=== PATIENT | male | born 1970 | race Caucasian/White ===

== ENCOUNTER 2017-03-21 14:30 | Emergency (ER) | payer BC ==
--- NOTE | 2017-03-21 14:39 | EDM.PDOC ---
ED HPI Trauma - General Chief Complaint: Lower Extremity Injury/Pain Stated Complaint: HEEL Time Seen by Provider: 03/21/17 14:39 Source: Reports: Patient - History of Present Illness INITIAL COMMENTS - FREE TEXT/NARRATIVE: HISTORY AND PHYSICAL: History of present illness: [] Patient presents with foot and ankle pain, he was working on a friend's car and stood up twisting his ankle, he is able to bear weight but with pain he rates pain 7 of 10 with weightbearing, he states that he did hear an audible pop when he twisted his ankle No fever nausea vomiting diarrhea constipation chest pain shortness breath headache dizziness or palpitation no bowel or urine symptoms Review of systems: As per history of present illness and below otherwise all systems reviewed and negative. Past medical history: As per history of present illness and as reviewed below otherwise noncontributory. Surgical history: As per history of present illness and as reviewed below otherwise noncontributory. Social history: No reported history of drug or alcohol abuse. Family history: As per history of present illness and as reviewed below otherwise noncontributory. Physical exam: HEENT: Atraumatic, normocephalic, pupils reactive, negative for conjunctival pallor or scleral icterus, mucous membranes moist, throat clear, neck supple, nontender, trachea midline. Lungs: Clear to auscultation, breath sounds equal bilaterally, chest nontender. Heart: S1S2, regular, negative for clicks, rubs, or JVD. Abdomen: Soft, nondistended, nontender. Negative for masses or hepatosplenomegaly. Negative for costovertebral tenderness. Pelvis: Stable nontender. Genitourinary: Deferred. Rectal: Deferred. Extremities: Atraumatic, negative for cords or calf pain. Neurovascular unremarkable. Neuro: Awake, alert, oriented. Cranial nerves II through XII unremarkable. Cerebellum unremarkable. Motor and sensory unremarkable throughout. Exam nonfocal. Right lower extremity unaffected above the ankle he does have pain over lateral malleolus, he is also tender over the dorsum of his foot, there is no bruising or significant swelling entire limb is neurovascularly intact Diagnostics: [] Right ankle 3 views Right foot 3 views Therapeutics: [] Tylenol #3 Rest Is Air splint Crutches Impression: [] Right ankle sprain Definitive disposition and diagnosis as appropriate pending reevaluation and review of above. Allergies/ADRs: Allergies No Known Allergies Allergy (Verified 03/21/17 14:42) Home Medications: Ambulatory Orders Hydrochlorothiazide 25 mg PO DAILY 01/12/15 [Confirmed 03/21/17] amLODIPine Besylate [Amlodipine Besylate] 10 mg PO DAILY 01/12/15 [Confirmed ] Testosterone [Androderm] 4 mg TOP DAILY 02/02/16 [Confirmed 03/21/17] Celecoxib [CeleBREX] 200 mg PO DAILY #45 cap 03/21/16 [Confirmed 03/21/17] Past Medical History HEENT History: Reports: Impaired vision Other HEENT History: wears glasses Cardiovascular History: Reports: Hypertension Respiratory History: Reports: Sleep apnea Other Respiratory History: uses CPAP Gastrointestinal History: Reports: GERD Genitourinary History: Reports: None Musculoskeletal History: Reports: Arthritis Other Musculoskeletal History: has 2 herniated discs in back, possibly L 4 and 5 Neurological History: Reports: None Other Neuro History: has 2 herniated discs in back Psychiatric History: Reports: None Endocrine/Metabolic History: Reports: Obesity/BMI 30+ Hematologic History: Reports: None Immunologic History: Reports: None Oncologic (Cancer) History: Reports: None Dermatologic History: Reports: None - Infectious Disease History Infectious Disease History: Reports: None - Past Surgical History Musculoskeletal Surgical History: Reports: Arthroscopic knee, ORIF, Shoulder surgery Social & Family History - Family History HEENT: Reports: None Cardiac: Reports: None Respiratory: Reports: Asthma GI: Reports: None Neurological: Reports: None - Tobacco Use Smoking Status *Q: Former Smoker Years of Tobacco use: 10 Used Tobacco, but Quit: Yes Second Hand Smoke Exposure: Yes - Alcohol Use Days Per Week of Alcohol Use: 1 Number of Drinks Per Day: 2 Total Drinks Per Week: 2 - Recreational Drug Use Recreational Drug Use: No Drug Use in Last 12 Months: No Review of Systems - Review of Systems Review Of Systems: ROS reveals no pertinent complaints other than HPI. Trauma Exam - Physical Exam Exam: See Below Course - Vital Signs Last Recorded V/S: Last Vital Signs Temp 36.6 C 03/21/17 14:46 Pulse 88 03/21/17 14:46 Resp 20 03/21/17 14:46 BP 144/79 H 03/21/17 14:46 Pulse Ox 95 03/21/17 14:46 - Orders/Labs/Meds Orders: Active Orders 24 hr Category Date Time Status Ankle Min 3V Rt [CR] Stat Exams 03/21/17 14:38 Taken Foot Comp Min 3V Rt [CR] Stat Exams 03/21/17 14:38 Taken Departure - Departure Time of Disposition: 15:24 Disposition: Home, Self-Care 01 Condition: good Clinical Impression: Ankle sprain Forms: ED Department Discharge Additional Instructions: Medication as prescribed Ice 20 minute intervals 3 times daily 7-10 days Elevate foot rest Recommend nonweightbearing Crutches Air splint for comfort and additional support Followup with orthopedist, call office for appropriate followup [facility] [address], [address] [place] [address] my orthopedic The following information is given to patients seen in the emergency department who are being discharged to home. This information is to outline your options for follow-up care. We provide all patients seen in our emergency department with a follow-up referral. The need for follow-up, as well as the timing and circumstances, are variable depending upon the specifics of your emergency department visit. If you don't have a primary care physician on staff, we will provide you with a referral. We always advise you to contact your personal physician following an emergency department visit to inform them of the circumstance of the visit and for follow-up with them and/or the need for any referrals to a consulting specialist. The emergency department will also refer you to a specialist when appropriate. This referral assures that you have the opportunity for follow-up care with a specialist. All of these measure are taken in an effort to provide you with optimal care, which includes your follow-up. Under all circumstances we always encourage you to contact your private physician who remains a resource for coordinating your care. When calling for follow-up care, please make the office aware that this follow-up is from your recent emergency room visit. If for any reason you are refused follow-up, please contact the [facility] emergency department at and asked to speak to the emergency department charge nurse. - My Orders Last 24 Hours: My Active Orders 03/21/17 14:38 Ankle Min 3V Rt [CR] Stat Foot Comp Min 3V Rt [CR] Stat - Assessment/Plan Last 24 Hours: My Active Orders 03/21/17 14:38 Ankle Min 3V Rt [CR] Stat Foot Comp Min 3V Rt [CR] Stat
[2017-03-21 16:03] VITALS: BP 129/69
--- NOTE | 2017-03-21 16:46 | CR ---
EXAM DATE: 03/21/17 PATIENT'S AGE: 47 Patient: ORION CONTRERAS Facility: [place], [place] Site . Site : 1970 Study: XRay Extremity Right Foot [id number]/27/[id number] 2:58:30 PM Ordering Physician: Radha Kiran Final Report: Indication: Ankle trauma with pain Technique: Three views right foot Comparison: None Findings: Bones: Alignment is normal. No fractures or bone lesions. There is a small posterior calcaneal enthesophyte. Joint spaces: Unremarkable. Soft tissues: Unremarkable. Impression: No acute abnormality. Dictated by Maxine Major MD @ Mar 21 2017 2:59PM (Electronic Signature) Report Signed by Proxy. SANIA
--- NOTE | 2017-03-21 16:47 | CR ---
EXAM DATE: 03/21/17 PATIENT'S AGE: 47 Patient: ORION CONTRERAS Facility: [place], [place] Site . Site : 1970 Study: XRay Extremity Right Ankle [id number]/27/2017 2:59:13 PM Ordering Physician: Radha Kiran Final Report: Indication: Ankle trauma, pain Technique: Three views right ankle Comparison: None Findings: Bones: Alignment is normal. No fractures or bone lesions. Joint spaces: Unremarkable. Soft tissues: Unremarkable. Impression: Negative. Dictated by Maxine Major MD @ Mar 21 2017 3:04PM (Electronic Signature) Report Signed by Proxy. SANIA
== END 2017-03-21 15:49 | disposition home or self-care (01) ==
LOC: MW.ED 14:30
DX: S93.401A Sprain of unspecified ligament of right ankle, initial encounter (principal); I10 Essential (primary) hypertension; M19.90 Unspecified osteoarthritis, unspecified site; K21.9 Gastro-esophageal reflux disease without esophagitis; E66.9 Obesity, unspecified; Z87.891 Personal history of nicotine dependence; X50.1XXA Overexertion from prolonged static or awkward postures, initial encounter
CPT/HCPCS: 73610-26-RT; 73610-RT; 73630-26-RT; 73630-RT; 99283

== ENCOUNTER → 2017-03-27 | Outpatient (CLI) | payer BC ==
--- NOTE | 2017-03-27 12:47 | CR ---
EXAMINATION: Left and right knees HISTORY: Artificial joint COMPARISON: 03/29/2016, 02/16/2016 TECHNIQUE: 3 views bilaterally FINDINGS: Bilateral total knee hardware is demonstrated. Position and alignment appears near-anatomi c. Postoperative soft tissue changes are noted. No fracture or evidence of loosening. IMPRESSION: Stable bilateral total knee hardware.
== END ==
LOC: MW.CHORTHO 08:51
PROVIDERS: ATTEND Physician Assistant
DX: Z96.652 Presence of left artificial knee joint (principal); Z96.651 Presence of right artificial knee joint
CPT/HCPCS: 73562-26-LT; 73562-26-RT; 73562-LT; 73562-RT

== ENCOUNTER 2017-06-17 15:13 | Emergency (ER) | payer BC ==
--- NOTE | 2017-06-17 15:44 | EDM.PDOC ---
<Sima Winston - Last Filed: 06/17/17 15:44> ED HPI GENERAL MEDICAL PROBLEM - General Chief Complaint: Skin Complaint Stated Complaint: PT HAS BOIL Time Seen by Provider: 06/17/17 16:01 - Related Data Allergies Allergy/AdvReac Type Severity Reaction Status Date / Time No Known Allergies Allergy Verified 06/17/17 15:33 Home Meds: Home Meds Hydrochlorothiazide 25 mg PO DAILY 01/12/15 [History] amLODIPine Besylate [Amlodipine Besylate] 10 mg PO DAILY 01/12/15 [History] Testosterone [Androderm] 4 mg TOP DAILY 02/02/16 [History] Celecoxib [CeleBREX] 200 mg PO DAILY #45 cap 03/21/16 [Rx] Cephalexin [IJD: Cephalexin] 500 mg PO .EVERY 8 HOURS #20 cap 06/17/17 [Rx] Past Medical History HEENT History: Reports: Impaired Vision Other HEENT History: wears glasses Cardiovascular History: Reports: Hypertension Respiratory History: Reports: Sleep Apnea Other Respiratory History: uses CPAP Gastrointestinal History: Reports: GERD Genitourinary History: Reports: None Musculoskeletal History: Reports: Arthritis Other Musculoskeletal History: has 2 herniated discs in back, possibly L 4 and 5 Neurological History: Reports: None Other Neuro History: has 2 herniated discs in back Psychiatric History: Reports: None Endocrine/Metabolic History: Reports: Obesity/BMI 30+ Hematologic History: Reports: None Immunologic History: Reports: None Oncologic (Cancer) History: Reports: None Dermatologic History: Reports: None - Infectious Disease History Infectious Disease History: Reports: None - Past Surgical History Head Surgeries/Procedures: Reports: None Musculoskeletal Surgical History: Reports: Arthroscopic Knee, ORIF, Shoulder Surgery Social & Family History - Family History Family Medical History: Noncontributory HEENT: Reports: None Cardiac: Reports: None Respiratory: Reports: Asthma GI: Reports: None Neurological: Reports: None - Tobacco Use Smoking Status *Q: Former Smoker Years of Tobacco use: 10 Used Tobacco, but Quit: Yes Second Hand Smoke Exposure: Yes - Caffeine Use Caffeine Use: Reports: Coffee Caffeine Use Comment: 4 cups daily - Alcohol Use Days Per Week of Alcohol Use: 1 Number of Drinks Per Day: 2 Total Drinks Per Week: 2 - Recreational Drug Use Recreational Drug Use: No Drug Use in Last 12 Months: No Course - Vital Signs Last Recorded V/S: Last Vital Signs Temp 36.4 C 06/17/17 15:34 Pulse 86 06/17/17 15:34 Resp 18 06/17/17 15:34 BP 139/80 06/17/17 15:34 Pulse Ox 94 L 06/17/17 15:34 - Orders/Labs/Meds Meds: Medications Discontinued Medications Generic Name Dose Route Start Last Admin Trade Name Austyn PRN Reason Stop Dose Admin Ceftriaxone Sodium 1,000 mg/ 4 mls @ 4 mls/sec 06/17/17 15:59 Lidocaine HCl IM 06/17/17 16:00 ONETIME ONE Lidocaine HCl 20 ml 06/17/17 15:58 Xylocaine 1% INJECT 06/17/17 15:59 ONETIME ONE Departure - Departure Disposition: Home, Self-Care 01 Clinical Impression: Abscess Cellulitis Qualifiers: Site of cellulitis: trunk Site of cellulitis of trunk: perineum Qualified Code( s): L03.315 - Cellulitis of perineum - Discharge Information Prescriptions: Cephalexin [IJD: Cephalexin] 500 mg PO .EVERY 8 HOURS #20 cap Forms: ED Department Discharge Additional Instructions: The following information is given to patients seen in the emergency department who are being discharged to home. This information is to outline your options for follow-up care. We provide all patients seen in our emergency department with a follow-up referral. The need for follow-up, as well as the timing and circumstances, are variable depending upon the specifics of your emergency department visit. If you don't have a primary care physician on staff, we will provide you with a referral. We always advise you to contact your personal physician following an emergency department visit to inform them of the circumstance of the visit and for follow-up with them and/or the need for any referrals to a consulting specialist. The emergency department will also refer you to a specialist when appropriate. This referral assures that you have the opportunity for followup care with a specialist. All of these measure are taken in an effort to provide you with optimal care, which includes your followup. Under all circumstances we always encourage you to contact your private physician who remains a resource for coordinating your care. When calling for followup care, please make the office aware that this follow-up is from your recent emergency room visit. If for any reason you are refused follow-up, please contact the [facility] emergency department at and asked to speak to the emergency department charge nurse. Given an injection of Rocephin antibiotic while in the emergency department EScription has been electronically sent to your pharmacy Cephalexin 500 mg 3 times a day 7 days Absence water soaks <Krystin Alston - Last Filed: 06/17/17 16:21> ED HPI GENERAL MEDICAL PROBLEM - General Source of Information: Reports: Patient History Limitations: Reports: No Limitations - History of Present Illness INITIAL COMMENTS - FREE TEXT/NARRATIVE: HISTORY AND PHYSICAL: []47-year-old male who presents with abdominal cyst/ History of Present Illness: []Patient has history of hydradenitis Was taking a shower saw that he had a red spot that is exquisitely tender Review of Systems: As per history of present illness and below otherwise all systems reviewed and negative. Past medical history: As per history of present illness and as reviewed below otherwise noncontributory. Surgical history: As per history of present illness and as reviewed below otherwise noncontributory. Social history: No reported history of drug or alcohol abuse. Family history: As per history of present illness and as reviewed below otherwise noncontributory. Physical exam: Alert and oriented male answering questions appropriately in full sentences HEENT: Atraumatic, normocehpalic, pupils reactive, negative for conjunctival pallor or scleral icterus, mucous membranes moist, throat clear, neck supple, nontender, trachea midline. Lungs: Clear to auscultation, breath sounds equal bilaterally, chest non tender. Heart: S1S2, regular, negative for clicks, rubs, or JVD. Abdomen: Soft, nondistended, rounded and tender to area just below mid abdomen. Pubis abcess/erythema surrounding this area by 3 cm tender. Negative for masses or hepatossplenmegaly. Negative for costovertebral tenderness. Pelvis: Stable nontender. Genitourinary: Deferred. Rectal: Deferred Extremities: Atraumatic, negative for cords or calf pain. Neurovascular unremarkable. Neuro: Awake, alert, oriented. Cranial nerves II through XII unremarkable. Cerebellum unremarkable. Motor and sensory unremarkable throughout. Exam nonfocal. Diagnostics: [] Therapeutics: [I&D] Rocephin IM Impression: [Ingrown hair versus abscess] Cellulitis Plan: []Cephalexin 500 3 times a day 7 days Moist soaks [facility] water 3 times a day 15 minutes Definitive disposition and diagnosis as appropriate pending reevaluation and review of above. Onset: Gradual Duration: Day(s): Location: Reports: Abdomen suprapubic area Pain Score (Numeric/FACES): 8 ED ROS GENERAL - Review of Systems Review Of Systems: ROS reveals no pertinent complaints other than HPI. ED EXAM, SKIN/RASH Exam: See Below (See dictation) ED SKIN PROCEDURES - I&D Site: Suprapubic Skin Prep: Isopropyl Alcohol (Alcohol), Sterile Drape Local Anesthesia: Lidocaine: 1% Plain Local Anesthetic Volume: 3cc Area Incised With: 11 Blade Drainage: Purulent, Bloody, Moderate Amount Probed to Break Up Loculations: Yes Packed With: None Sterile Dressing: Adhesive Dressing Complications: No Departure - Departure Time of Disposition: 16:20 Condition: Good
[2017-06-17] MEDS ORDERED: Lidocaine 1% 20 ML MDV INJECT ONE (15:58)
[2017-06-17] MEDS ORDERED: cefTRIAXone 1,000 MG in Lidocaine 1% 4 ML IM ONE (15:59)
[2017-06-17 16:39] VITALS: BP 141/82
== END 2017-06-17 16:39 | disposition home or self-care (01) ==
LOC: MW.ED 15:13
DX: L03.315 Cellulitis of perineum (principal); L02.215 Cutaneous abscess of perineum; I10 Essential (primary) hypertension; K21.9 Gastro-esophageal reflux disease without esophagitis; E66.9 Obesity, unspecified; Z79.899 Other long term (current) drug therapy; Z87.891 Personal history of nicotine dependence
CPT/HCPCS: 10060; 96372; 99283; J0696

== ENCOUNTER 2017-08-03 12:33 | Emergency (ER) | payer BC ==
[2017-08-03] MEDS ORDERED: Acetaminophen/HYDROcodone 325-7.5 MG Tab PO ONE (12:55)
--- NOTE | 2017-08-03 12:59 | EDM.PDOC ---
ED HPI GENERAL MEDICAL PROBLEM - General Chief Complaint: Upper Extremity Injury/Pain Stated Complaint: SMASHED HAND Time Seen by Provider: 08/03/17 12:48 - History of Present Illness INITIAL COMMENTS - FREE TEXT/NARRATIVE: HISTORY AND PHYSICAL: History of present illness: The patient is a 47-year-old male who is left-hand dominant and presents with complaints of pain to the dorsal aspect of his left him after he hit it with a sledgehammer. Patient states he was at work occurred and he has no other complaints. He has no proximal wrist forearm elbow or other extremity complaints and has not taken anything for the pain prior to coming here. The patient has a long-standing history with our orthopedics clinic as he has had bilateral knee is replaced as well as his left elbow operated on. Patient describes the pain as severe and radiating up his arm. The patient states that he can move the wrist and the fingers but there is great discomfort with that. Review of systems: As per history of present illness and below otherwise all systems reviewed and negative. Past medical history: As per history of present illness and as reviewed below otherwise noncontributory. Surgical history: As per history of present illness and as reviewed below otherwise noncontributory. Social history: No reported history of drug or alcohol abuse. Family history: As per history of present illness and as reviewed below otherwise noncontributory. Physical exam: General: Well-developed overweight male who is nontoxic and speaking clearly in the ED. HEENT: Atraumatic, normocephalic, negative for conjunctival pallor or scleral icterus, mucous membranes moist, neck supple, nontender, trachea midline. Lungs: Clear to auscultation, breath sounds equal bilaterally, chest nontender. Heart: S1S2, regular rate and rhythm no overt murmurs Abdomen: Soft, nondistended, nontender. NABS Skin: No evidence of any rashes or lesions overtly and turgor is normal Genitourinary: Deferred. Rectal: Deferred. Extremities: Atraumatic with chronic skin changes on the dorsal aspects of both hands due to chronic friction his job, there is soft tissue swelling and tenderness along the second metacarpal of the left hand without any palpable bony deformities and there is tenderness discretely in this region. There is no ecchymosis and there is no proximal wrist forearm elbow humerus or shoulder tenderness on the left side. Neurovascular is intact here. The legs are, negative for cords or calf pain. Neurovascular unremarkable. Neuro: Awake, alert, oriented. Cranial nerves II through XII unremarkable. Cerebellum unremarkable. Motor and sensory unremarkable throughout. Exam nonfocal. Diagnostics: X-ray left hand Therapeutics: Del Valle Velcro splint was offered to the patient to try and he will keep if he feels that it is giving him some comfort. The patient states that he has medications for pain at home and does not need a prescription Impression: Left hand contusion Definitive disposition and diagnosis as appropriate pending reevaluation and review of above. Left Hand Pain Score (Numeric/FACES): 10 - Related Data Allergies Allergy/AdvReac Type Severity Reaction Status Date / Time No Known Allergies Allergy Verified 08/03/17 12:47 Home Meds: Home Meds Hydrochlorothiazide 25 mg PO DAILY 01/12/15 [History] amLODIPine Besylate [Amlodipine Besylate] 10 mg PO DAILY 01/12/15 [History] Testosterone [Androderm] 4 mg TOP DAILY 02/02/16 [History] Celecoxib [CeleBREX] 200 mg PO DAILY #45 cap 03/21/16 [Rx] Past Medical History HEENT History: Reports: Impaired Vision Other HEENT History: wears glasses Cardiovascular History: Reports: Hypertension Respiratory History: Reports: Sleep Apnea Other Respiratory History: uses CPAP Gastrointestinal History: Reports: GERD Genitourinary History: Reports: None Musculoskeletal History: Reports: Arthritis Other Musculoskeletal History: has 2 herniated discs in back, possibly L 4 and 5 Neurological History: Reports: None Other Neuro History: has 2 herniated discs in back Psychiatric History: Reports: None Endocrine/Metabolic History: Reports: Obesity/BMI 30+ Hematologic History: Reports: None Immunologic History: Reports: None Oncologic (Cancer) History: Reports: None Dermatologic History: Reports: None - Infectious Disease History Infectious Disease History: Reports: None - Past Surgical History Head Surgeries/Procedures: Reports: None HEENT Surgical History: Reports: None Cardiovascular Surgical History: Reports: None GI Surgical History: Reports: Bariatric Procedure Musculoskeletal Surgical History: Reports: Arthroscopic Knee, ORIF, Shoulder Surgery Social & Family History - Family History Family Medical History: Noncontributory HEENT: Reports: None Cardiac: Reports: None Respiratory: Reports: Asthma GI: Reports: None Neurological: Reports: None - Tobacco Use Smoking Status *Q: Former Smoker Years of Tobacco use: 10 Used Tobacco, but Quit: Yes Month Tobacco Last Used: 20 years ago Second Hand Smoke Exposure: Yes - Caffeine Use Caffeine Use: Reports: Coffee, Energy Drinks, Soda, Tea Caffeine Use Comment: 4 cups daily - Alcohol Use Days Per Week of Alcohol Use: 1 Number of Drinks Per Day: 2 Total Drinks Per Week: 2 - Recreational Drug Use Recreational Drug Use: No Drug Use in Last 12 Months: No Review of Systems - Review of Systems Review Of Systems: ROS reveals no pertinent complaints other than HPI. ED EXAM, GENERAL - Physical Exam Exam: See Below (See dictation) Course - Vital Signs Last Recorded V/S: Last Vital Signs Temp 36.9 C 08/03/17 12:47 Pulse 81 08/03/17 12:47 Resp 16 08/03/17 12:47 BP 124/72 08/03/17 12:47 Pulse Ox 95 08/03/17 12:47 - Orders/Labs/Meds Orders: Active Orders 24 hr Category Date Time Status Hand Comp Min 3V Lt [CR] Stat Exams 08/03/17 12:55 Taken DME for Discharge [COMM] Stat Oth 08/03/17 13:56 Ordered Meds: Medications Discontinued Medications Generic Name Dose Route Start Last Admin Trade Name Freq PRN Reason Stop Dose Admin Hydrocodone Bitart/Acetaminophen 1 tab 08/03/17 12:55 08/03/17 13:44 Del Valle 325-7.5 Mg PO 08/03/17 12:56 1 tab ONETIME ONE Administration Departure - Departure Time of Disposition: 13:57 Disposition: Home, Self-Care 01 Condition: Good Clinical Impression: Contusion of left hand Qualifiers: Encounter type: initial encounter Qualified Code(s): S60.222A - Contusion of left hand, initial encounter - Discharge Information Referrals: Lupe Adler SEEDLING PULLER [Primary Care Provider] - Forms: ED Department Discharge Additional Instructions: The following information is given to patients seen in the emergency department who are being discharged to home. This information is to outline your options for follow-up care. We provide all patients seen in our emergency department with a follow-up referral. The need for follow-up, as well as the timing and circumstances, are variable depending upon the specifics of your emergency department visit. If you don't have a primary care physician on staff, we will provide you with a referral. We always advise you to contact your personal physician following an emergency department visit to inform them of the circumstance of the visit and for follow-up with them and/or the need for any referrals to a consulting specialist. The emergency department will also refer you to a specialist when appropriate. This referral assures that you have the opportunity for followup care with a specialist. All of these measure are taken in an effort to provide you with optimal care, which includes your followup. Under all circumstances we always encourage you to contact your private physician who remains a resource for coordinating your care. When calling for followup care, please make the office aware that this follow-up is from your recent emergency room visit. If for any reason you are refused follow-up, please contact the [facility] emergency department at and ask to speak to the emergency department charge nurse. [facility]-Plastic Surgery and Hand Surgery Professional [address] [address] Ice and elevate the area and please call and follow-up with our hand specialist next week using resources given to above. Return to ER as needed as discussed in please use the pain medication that you have at home and also add Aleve or ibuprofen for inflammation. - My Orders Last 24 Hours: My Active Orders 08/03/17 12:55 Hand Comp Min 3V Lt [CR] Stat 08/03/17 13:56 DME for Discharge [COMM] Stat - Assessment/Plan Last 24 Hours: My Active Orders 08/03/17 12:55 Hand Comp Min 3V Lt [CR] Stat 08/03/17 13:56 DME for Discharge [COMM] Stat
[2017-08-03 14:26] VITALS: BP 122/75
--- NOTE | 2017-08-05 13:44 | CR ---
EXAM DATE: 08/03/17 PATIENT'S AGE: 47 Patient: ORION CONTRERAS Facility: [place], [place] Site . Site : 1970 Study: XRay Extremity Left hand [id number]/9/2017 1:09:34 PM Ordering Physician: Jose Ohara Final Report: INDICATION: Trauma. TECHNIQUE: Three views of the left hand. COMPARISON: None. IMPRESSION: No acute fracture. No traumatic subluxation or dislocation. No radiopaque foreign body. Dictated by Dandre Duncan MD @ 08/03/2017 1:26:10 PM Dictated by: Dandre Duncan MD @ 08/03/2017 13:26:15 (Electronic Signature) Report Signed by Proxy. SANIA
== END 2017-08-03 14:20 | disposition home or self-care (01) ==
LOC: MW.ED 12:33
DX: S60.222A Contusion of left hand, initial encounter (principal); I10 Essential (primary) hypertension; K21.9 Gastro-esophageal reflux disease without esophagitis; E66.9 Obesity, unspecified; M19.90 Unspecified osteoarthritis, unspecified site; Z87.891 Personal history of nicotine dependence; Z79.899 Other long term (current) drug therapy; W23.1XXA Caught, crushed, jammed, or pinched between stationary objects, initial encounter; Y99.0 Civilian activity done for income or pay
CPT/HCPCS: 73130; 99283; A9270; 99284

== ENCOUNTER 2018-04-21 06:02 | Emergency (ER) | payer BC ==
[2018-04-21] MEDS ORDERED: Sodium Chloride 0.9% 10 ML Syringe FLUSH PRN (06:09)
[2018-04-21] MEDS ORDERED: Aspirin 81 MG Tab.Chew PO ONE (06:09)
[2018-04-21] MEDS ORDERED: Sodium Chloride 0.9% 1,000 ML IV ONE (06:09)
[2018-04-21] MEDS ORDERED: Sodium Chloride 0.9% 2.5 ML Syringe FLUSH PRN ×2 (06:09)
--- NOTE | 2018-04-21 06:13 | EDM.PDOC ---
ED HPI GENERAL MEDICAL PROBLEM - General Chief Complaint: Cardiovascular Problem Stated Complaint: CHEST PAIN Time Seen by Provider: 04/21/18 06:05 Source of Information: Reports: Patient, Family History Limitations: Reports: No Limitations - History of Present Illness INITIAL COMMENTS - FREE TEXT/NARRATIVE: HISTORY AND PHYSICAL: History of present illness: 48-year-old male presenting emergency department with chief complaint of starting approximately 30 minutes ago. Patient states that approximately 30 minutes ago he began to have "heart palpitations". He has had similar episodes in the past and is currently on Zarontin for proximal A. fib. States that he had an episode in [place] and was medically cardioverted and has since been in normal sinus rhythm. Denies any overt chest pain but in the past has had chest pain with his palpitations. He does feel the palpitations and on arrival to the emergency department said that they have been going in and out. He has had some mild shortness of breath with the palpitations. He denies any leg pain and has no history of DVT. States that he has been taking his roto-but has been out for the past week. Has planned to get the medication refilled but has not been able to get in to see Nadege Adler's PCP here. Previously he was feeling his normal self and denies any recent illness, fevers, chills, malaise, abdominal pain, diarrhea, sore throat, syncopal episodes, or focal neurologic deficits. Review of systems: As per history of present illness and below otherwise all systems reviewed and negative. Past medical history: As per history of present illness and as reviewed below otherwise noncontributory. Surgical history: As per history of present illness and as reviewed below otherwise noncontributory. Social history: No reported history of drug or alcohol abuse. Family history: As per history of present illness and as reviewed below otherwise noncontributory. Physical exam: HEENT: Atraumatic, normocephalic, pupils reactive, negative for conjunctival pallor or scleral icterus, mucous membranes moist, throat clear, neck supple, nontender, trachea midline. Lungs: Clear to auscultation, breath sounds equal bilaterally, chest nontender. Heart: S1S2, regular, negative for clicks, rubs, or JVD. Abdomen: Soft, nondistended, nontender. Negative for masses or hepatosplenomegaly. Negative for costovertebral tenderness. Pelvis: Stable nontender. Genitourinary: Deferred. Rectal: Deferred. Extremities: Atraumatic, negative for cords or calf pain. Neurovascular unremarkable. Neuro: Awake, alert, oriented. Cranial nerves II through XII unremarkable. Cerebellum unremarkable. Motor and sensory unremarkable throughout. Exam nonfocal. Diagnostics: CBC, CMP, troponin, INR, d-dimer Therapeutics: ASA 324 mg, Impression: Proximal A. fib Palpitations Plan: CBC, CMP, troponin, INR, d-dimer all unremarkable. Patient was initially in normal sinus rhythm with presented emergency department. He has had intermittent episodes of dictations which we were able to somewhat capture on single lead. There seems to be some PACs as well as dropped beats intermittently. Secondary to the above and his history of proximal A. fib patient most likely should be seen by chicken fancier sooner rather than later. This was communicated to the patient who agrees. Did talk to Dr. Holder at [facility] who accepts patient for transfer for further evaluation. Definitive disposition and diagnosis as appropriate pending reevaluation and review of above. - Related Data Allergies Allergy/AdvReac Type Severity Reaction Status Date / Time No Known Allergies Allergy Verified 04/21/18 06:14 Home Meds: Home Meds Acetaminophen/HYDROcodone [Pace 325-5 MG] 1 tab PO TID PRN 04/21/18 [History] Enalapril Maleate 1 tab PO DAILY 04/21/18 [History] Gabapentin [Neurontin] 1 tab PO TID 04/21/18 [History] Metoprolol Succinate [Toprol XL 100mg] 1 tab PO BID 04/21/18 [History] Rivaroxaban [Xarelto] 1 tab PO BID 04/21/18 [History] Sildenafil [Revatio] 2 tab PO ASDIRECTED 04/21/18 [History] Past Medical History HEENT History: Reports: Impaired Vision Other HEENT History: wears glasses Cardiovascular History: Reports: Hypertension Respiratory History: Reports: Sleep Apnea Other Respiratory History: uses CPAP Gastrointestinal History: Reports: GERD Genitourinary History: Reports: None Musculoskeletal History: Reports: Arthritis Other Musculoskeletal History: has 2 herniated discs in back, possibly L 4 and 5 Neurological History: Reports: None Other Neuro History: has 2 herniated discs in back Psychiatric History: Reports: None Endocrine/Metabolic History: Reports: Obesity/BMI 30+ Hematologic History: Reports: None Immunologic History: Reports: None Oncologic (Cancer) History: Reports: None Dermatologic History: Reports: None - Infectious Disease History Infectious Disease History: Reports: None - Past Surgical History Head Surgeries/Procedures: Reports: None HEENT Surgical History: Reports: None Cardiovascular Surgical History: Reports: None GI Surgical History: Reports: Bariatric Procedure Musculoskeletal Surgical History: Reports: Arthroscopic Knee, ORIF, Shoulder Surgery Social & Family History - Family History Family Medical History: Noncontributory HEENT: Reports: None Cardiac: Reports: None Respiratory: Reports: Asthma GI: Reports: None Neurological: Reports: None - Caffeine Use Caffeine Use: Reports: Coffee, Energy Drinks, Soda, Tea Caffeine Use Comment: 4 cups daily ED ROS GENERAL - Review of Systems Review Of Systems: See Below ED EXAM, GENERAL - Physical Exam Exam: See Below Course - Vital Signs Last Recorded V/S: Last Vital Signs Temp 98.6 F 04/21/18 06:02 Pulse 93 04/21/18 06:02 Resp 24 H 04/21/18 06:02 BP 168/100 H 04/21/18 06:02 Pulse Ox 97 04/21/18 06:22 - Orders/Labs/Meds Orders: Active Orders 24 hr Category Date Time Status Cardiac Monitoring [RC] . DIRECTED Care 04/21/18 06:09 Active EKG Documentation Completion [RC] STAT Care 04/21/18 06:09 Active Oxygen Therapy [RC] ASDIRECTED Care 04/21/18 06:09 Active Chest 1V Frontal [CR] Stat Exams 04/21/18 06:09 Taken UA W/MICROSCOPIC [URIN] Stat Lab 04/21/18 06:10 Ordered Sodium Chloride 0.9% [Saline Flush] Med 04/21/18 06:09 Active 10 ml FLUSH ASDIRECTED PRN Sodium Chloride 0.9% [Saline Flush] Med 04/21/18 06:09 Active 2.5 ml FLUSH ASDIRECTED PRN Sodium Chloride 0.9% [Saline Flush] Med 04/21/18 06:09 Active 2.5 ml FLUSH ASDIRECTED PRN Saline Lock Insert [OM.PC] Stat Oth 04/21/18 06:09 Ordered Medication Orders Sodium Chloride (Saline Flush) 2.5 ml FLUSH ASDIRECTED PRN PRN Reason: Keep Vein Open Last Admin: 04/21/18 06:19 Dose: 2.5 ml Sodium Chloride (Saline Flush) 10 ml FLUSH ASDIRECTED PRN PRN Reason: Keep Vein Open Last Admin: 04/21/18 06:20 Dose: 10 ml Sodium Chloride (Saline Flush) 2.5 ml FLUSH ASDIRECTED PRN PRN Reason: Keep Vein Open Last Admin: 04/21/18 06:19 Dose: 2.5 ml Labs: Laboratory Tests 04/21/18 04/21/18 04/21/18 Range/Units 06:10 06:10 06:10 WBC 10.78 (4.0-11.0) K/uL RBC 5.51 (4.50-5.90) M/uL Hgb 17.2 H (13.0-17.0) g/dL Hct 50.4 H (38.0-50.0) % MCV 91.5 (80.0-98.0) fL MCH 31.2 (27.0-32.0) pg MCHC 34.1 (31.0-37.0) g/dL RDW Std Deviation 44.6 (28.0-62.0) fl RDW Coeff of Daniel 13 (11.0-15.0) % Plt Count 206 (150-400) K/uL MPV 9.40 (7.40-12.00) fL Neut % (Auto) 54.2 (48.0-80.0) % Lymph % (Auto) 31.0 (16.0-40.0) % Crane % (Auto) 11.4 (0.0-15.0) % Eos % (Auto) 3.1 (0.0-7.0) % Baso % (Auto) 0.3 (0.0-1.5) % Neut # (Auto) 5.9 H (1.4-5.7) K/uL Lymph # (Auto) 3.3 H (0.6-2.4) K/uL Crane # (Auto) 1.2 H (0.0-0.8) K/uL Eos # (Auto) 0.3 (0.0-0.7) K/uL Baso # (Auto) 0.0 (0.0-0.1) K/uL Nucleated RBC % 0.0 /100WBC Nucleated RBCs # 0 K/uL D-Dimer, Quantitative 0.41 (0.0-0.52) mg/LFEU Sodium 137 (136-148) mmol/L Potassium 4.2 (3.5-5.1) mmol/L Chloride 101 (98-107) mmol/L Carbon Dioxide 25.8 (21.0-32.0) mmol/L BUN 12 (7.0-18.0) mg/dL Creatinine 1.1 (0.8-1.3) mg/dL Est Cr Clr Drug Dosing 98.16 mL/min Estimated GFR (MDRD) > 60.0 ml/min Glucose 113 H (74-106) mg/dL Calcium 9.3 (8.5-10.1) mg/dL Total Bilirubin 0.5 (0.2-1.0) mg/dL AST 28 (15-37) IU/L ALT 35 (14-63) IU/L Alkaline Phosphatase 60 (46-116) U/L Troponin I < 0.050 (0.000-0.056) ng/mL Total Protein 7.8 (6.4-8.2) g/dL Albumin 3.7 (3.4-5.0) g/dL Globulin 4.1 H (2.0-3.5) g/dL Albumin/Globulin Ratio 0.9 L (1.3-2.8) Meds: Medications Generic Name Dose Route Start Last Admin Trade Name Freq PRN Reason Stop Dose Admin Sodium Chloride 2.5 ml 04/21/18 06:09 04/21/18 06:19 Saline Flush FLUSH 2.5 ml ASDIRECTED PRN Administration Keep Vein Open Sodium Chloride 10 ml 04/21/18 06:09 04/21/18 06:20 Saline Flush FLUSH 10 ml ASDIRECTED PRN Administration Keep Vein Open Sodium Chloride 2.5 ml 04/21/18 06:09 04/21/18 06:19 Saline Flush FLUSH 2.5 ml ASDIRECTED PRN Administration Keep Vein Open Discontinued Medications Generic Name Dose Route Start Last Admin Trade Name Freq PRN Reason Stop Dose Admin Aspirin 324 mg 04/21/18 06:09 04/21/18 06:19 Aspirin PO 04/21/18 06:10 324 mg ONETIME ONE Administration Sodium Chloride 1,000 mls @ 999 mls/hr 04/21/18 06:09 04/21/18 06:19 Normal Saline IV 04/21/18 07:09 999 mls/hr .Bolus ONE Administration Departure - Departure Time of Disposition: 07:25 Disposition: DC/Tfer to Other 70 Reason for Transfer *Q: Other (paroxismal a-fib with PAC's and possible sick sinus syndrome.) Condition: Good Clinical Impression: Paroxysmal A-fib Referrals: PCP,None [Primary Care Provider] - Forms: ED Department Discharge - My Orders Last 24 Hours: My Active Orders 04/21/18 06:09 Cardiac Monitoring [RC] . DIRECTED EKG Documentation Completion [RC] STAT Oxygen Therapy [RC] ASDIRECTED Chest 1V Frontal [CR] Stat Sodium Chloride 0.9% [Saline Flush] 10 ml FLUSH ASDIRECTED PRN Sodium Chloride 0.9% [Saline Flush] 2.5 ml FLUSH ASDIRECTED PRN Sodium Chloride 0.9% [Saline Flush] 2.5 ml FLUSH ASDIRECTED PRN Saline Lock Insert [OM.PC] Stat 04/21/18 06:10 UA W/MICROSCOPIC [URIN] Stat - Assessment/Plan Last 24 Hours: My Active Orders 04/21/18 06:09 Cardiac Monitoring [RC] . DIRECTED EKG Documentation Completion [RC] STAT Oxygen Therapy [RC] ASDIRECTED Chest 1V Frontal [CR] Stat Sodium Chloride 0.9% [Saline Flush] 10 ml FLUSH ASDIRECTED PRN Sodium Chloride 0.9% [Saline Flush] 2.5 ml FLUSH ASDIRECTED PRN Sodium Chloride 0.9% [Saline Flush] 2.5 ml FLUSH ASDIRECTED PRN Saline Lock Insert [OM.PC] Stat 04/21/18 06:10 UA W/MICROSCOPIC [URIN] Stat
[2018-04-21 06:42] LABS: CHLORIDE,CL 101 mmol/L (98-107); SODIUM,NA 137 mmol/L (136-148)
[2018-04-21] MEDS ORDERED: Sodium Chloride 0.9% 1,000 ML IV SCH (08:00)
[2018-04-21 08:32] VITALS: BP 143/85
--- NOTE | 2018-04-22 14:17 | CR ---
EXAM DATE: 04/21/18 PATIENT'S AGE: 48 Patient: ORION CONTRERAS Facility: [place], [place] Site . Site : 1970 Study: XRay Chest [id number]/28/2018 6:26:36 AM Ordering Physician: Joe Kimbrough Final Report: INDICATION: Chest pain, shortness of breath. TECHNIQUE: Chest radiograph 1 view COMPARISON: None FINDINGS: Cardiovascular and mediastinum: The heart silhouette is normal in size and morphology. The mediastinum is normal in appearance. Lungs and pleural spaces: Both lungs are unremarkable in appearance. No sign of pleural effusion seen. No pneumothorax is identified. Bones and soft tissues: No significant findings. IMPRESSION: 1. No acute cardiopulmonary disease is seen. Dictated by Liban Kumar MD @ 04/21/2018 6:37:39 AM Dictated by: Liban Kumar MD @ 04/21/2018 06:37:44 (Electronic Signature) Report Signed by Proxy. SANIA
== END 2018-04-21 09:11 | disposition other institution (70) ==
LOC: MW.ED 06:02
DX: I48.0 Paroxysmal atrial fibrillation (principal); I10 Essential (primary) hypertension
CPT/HCPCS: 36415; 71045; 80053; 81001; 84484; 85025; 85379; 93005; 96360; 96361; 99285; A9270; J7040